=== PATIENT | male | born 1980 | race Caucasian/White ===

== ENCOUNTER 2018-11-08 20:41 | Emergency (ER) | payer OTHER ==
[~2018-11-08] VITALS: Ht 190.5 cm; Wt 95.3 kg
[2018-11-08 20:48] VITALS: BP_SYST 154
--- NOTE | 2018-11-08 20:57 | NUR ---
Patient to ER bed 05 for evaluation. Side rails up. Report given to Lizbeth HAMM.
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
--- NOTE | 2018-11-08 20:58 | NUR ---
ER Dr. Rawls at bedside examining patient.
--- NOTE | 2018-11-08 21:23 | NUR ---
Consent signed for left shoulder reduction and placed in chart.
[2018-11-08] MEDS ORDERED: MORPHINE 4 MG/ML INJ. SYRINGE IVP ONE ×2 (21:30→22:15)
[2018-11-08] MEDS ORDERED: PROPOFOL 200MG/ 20ML VIAL (DIPRIVAN) IV ONE ×2 (21:30→22:15)
--- NOTE | 2018-11-08 21:31 | NUR ---
# 18 gauge angiocath placed to RAC. Use of asceptic technique. Opsite placed over site. Blood return noted. Blood for lab drawn from site. Flushed with 10 cc of normal saline. No evidence of infiltration noted. Patient tolerated well.
[2018-11-08 21:41] LABS: BASOPHILS # (AUTO) 0.1 K/uL (0.0-0.2); BASOPHILS % (AUTO) 0.5 % (0.0-2.0); EOSINOPHILS % (AUTO) 0.2 % (0.0-4.0); HEMATOCRIT 43.3 % (36-54); HEMOGLOBIN 14.5 g/dL (14.0-18.0); LYMPHOCYTES # (AUTO) 1.5 K/uL (1.0-5.5); LYMPHOCYTES % (AUTO) 10.9 % (20.5-51.5); MEAN CORPUSCULAR HEMOGLOBIN 30 pg (27-31); MEAN CORPUSCULAR HGB CONC 34 % (32-36); MEAN CORPUSCULAR VOLUME 90 fL (79.0-98.0); MONOCYTES # (AUTO) 0.9 K/uL (0.0-1.0); MONOCYTES % (AUTO) 6.5 % (1.7-9.3); NEUTROPHILS % (AUTO) 81.9 % (40.0-70.0); PLATELET COUNT (AUTO) 238 K/uL (130-430); RED BLOOD CELL COUNT(AUTO) 4.82 MIL/uL (4.2-6.2); RED CELL DISTRIBUTION WIDTH 13.4 % (9.0-15.0); WHITE BLOOD COUNT (AUTO) 13.4 K/uL (4.8-10.8)
--- NOTE | 2018-11-08 21:58 | NUR ---
Pt was moved to ER bed 1. placed on the consulting property manager, pulse oximetry, and blood pressure cuff.
--- NOTE | 2018-11-08 21:59 | NUR ---
Time out performed at this time with nurse, MD, and RT at bedside. See moderate sedation record in chart.
[2018-11-08 22:24] LABS: CALCIUM 9.4 mg/dL (8.4-11.0); CREATININE 0.99 mg/dL (0.55-1.30); POTASSIUM 3.4 mmol/L (3.5-5.1)
[2018-11-08 22:27] LABS: PROTHROMBIN TIME 10.5 SECS (9.5-12.5)
[2018-11-08 22:28] LABS: ALBUMIN 4.7 g/dL (3.4-4.8); TOTAL BILIRUBIN 0.7 mg/dL (0.0-1.0)
--- NOTE | 2018-11-08 22:33 | NUR ---
Medication was given, pt tolerated well. No adverse reaction, will continue to monitor.
[2018-11-08] MEDS ORDERED: fentaNYL CITRATE/PF 100 MCG/2 ML AMP IVP ONE (23:15)
--- NOTE | 2018-11-08 23:30 | NUR ---
No adverse reactions noted after medication administration. Will continue to monitor.
--- NOTE | 2018-11-09 00:33 | NUR ---
Patient resting on gurney. Awaiting transfer information from insurance.
[2018-11-09] MEDS ORDERED: fentaNYL CITRATE/PF 100 MCG/2 ML AMP IVP ONE (02:00)
--- NOTE | 2018-11-09 02:49 | NUR ---
Patient made aware of transfer to [facility]. Consent signed and placed in chart.
--- NOTE | 2018-11-09 03:08 | NUR ---
Patient to be transferred to [facility]. Is being transferred due to higher level of care. Receiving facility has accepting physician and available space. ER physician has signed transfer form. Patient or responsible democrat has agreed to transfer and signed form. Patient belongings inventoried and will be sent with patient. Copy of nursing notes, lab reports, Physicians Orders and X-rays to be sent with patient. Report called to HANSEL Hickman at receiving facility. Receiving physician is Dr. Quiroz. [facility] ambulance service has been called for transfer. ETA is 15 minutes.
[2018-11-09 03:16] VITALS: BP_SYST 163
== END 2018-11-09 03:08 | disposition short-term general hospital (02) ==
LOC: SED 20:41
DX: S42.392A Other fracture of shaft of left humerus, initial encounter for closed fracture (principal); V29.9XXA Motorcycle rider (driver) (passenger) injured in unspecified traffic accident, initial encounter; Y93.89 Activity, other specified; Y92.410 Unspecified street and highway as the place of occurrence of the external cause; Y99.8 Other external cause status
CPT/HCPCS: 23650; 36415; 73030; 80053; 85025; 85610; 85730; 99152; 99285; J2270; J2704; J3010 ×2